=== PATIENT | female | born 1985 | race Caucasian/White ===

== ENCOUNTER 2023-09-23 02:10 | Inpatient (IN) | payer OTHER ==
[2023-09-23] MEDS ORDERED: Ondansetron 4 MG/2 ML SDV IVPUSH PRN (08:00)
[2023-09-23] MEDS ORDERED: Sodium Chloride 0.9% 10 ML Syringe FLUSH PRN (08:00)
[2023-09-23] MEDS ORDERED: Oxytocin/Lactated Ringers 30 UNIT/500 ML BAG IV SCH (08:00)
[2023-09-23] MEDS ORDERED: Lidocaine 1% 50 ML MDV INJECT PRN (08:00)
[2023-09-23] MEDS ORDERED: Nalbuphine 10 MG/ML Syringe IVPUSH PRN (08:00)
[2023-09-23 08:33] LABS: BASOPHILS PERCENT AUTO 0.4 % (0.0-1.0); EOSINOPHILS ABSOLUTE AUTO 0.2 K/mm3 (0.0-0.4); EOSINOPHILS PERCENT AUTO 2.6 % (0.0-6.0); HEMATOCRIT 29.9 % (37.0-47.0); IMMATURE GRAN ABSOLUTE AUTO 0.07 K/mm3 (0.00-0.05); IMMATURE GRAN PERCENT AUTO 0.9 % (0.0-0.4); LYMPHOCYTES ABSOLUTE AUTO 1.6 K/mm3 (1.0-4.8); LYMPHOCYTES PERCENT AUTO 19.2 % (24.0-44.0); MEAN CORPUSCULAR HEMOGLOBIN 26.6 pg (28.0-32.0); MEAN CORPUSCULAR HGB CONC 31.8 g/dl (32.0-36.0); MEAN PLATELET VOLUME 9.4 fl (9.4-12.3); MONOCYTES ABSOLUTE AUTO 0.5 K/mm3 (0.0-0.8); MONOCYTES PERCENT AUTO 6.7 % (0.0-8.0); NEUTROPHILS ABSOLUTE AUTO 5.7 K/mm3 (1.8-7.7); NEUTROPHILS PERCENT AUTO 70.2 % (41.0-71.0); PLATELET COUNT,PLT 259 K/mm3 (150-400); RED BLOOD CELL COUNT 3.57 M/mm3 (4.10-5.30); WHITE BLOOD CELL COUNT,WBC 8.07 K/mm3 (3.9-11.3)
[2023-09-23 08:49] LABS: HEMOGLOBIN 9.5 gm/dl (12.0-16.0); MEAN CORPUSCULAR VOLUME 83.8 fl (83.0-99.0)
[2023-09-23] MEDS: Lactated Ringers 1,000 ML IV SCH (08:54)
[2023-09-23] MEDS: Oxytocin/Lactated Ringers 30 UNIT/500 ML BAG IV SCH (08:54)
[2023-09-23 08:55] LABS: A/G RATIO 0.7 (1-2); ALANINE AMINOTRANSFERASE,ALT 13 U/L (14-59); ALBUMIN 2.3 g/dl (3.4-5.0); ALKALINE PHOSPHATASE 126 U/L (46-116); ANION GAP 13.5 (5-15); ASPARTATE AMNIOTRANSFERASE,AST 17 U/L (15-37); BILIRUBIN TOTAL 0.2 mg/dL (0.2-1.0); BLOOD UREA NITROGEN,BUN 7 mg/dL (7-18); CALCIUM 8.3 mg/dL (8.5-10.1); CARBON DIOXIDE,CO2 22 mEq/L (21-32); CHLORIDE,CL 106 mEq/L (98-107); CREATININE 0.5 mg/dL (0.55-1.02); ESTIMATED GFR 122 mL/min (>60); GLUCOSE RANDOM 89 mg/dL (70-99); POTASSIUM,K 3.5 mEq/L (3.5-5.1); PROTEIN TOTAL,TP 5.6 g/dl (6.4-8.2); SODIUM,NA 138 mEq/L (136-145)
[2023-09-23] MEDS: Sodium Chloride 0.9% 10 ML Syringe FLUSH SCH (11:13)
[2023-09-23 12:01] LABS: CREATININE,URINE RAND 23.4 mg/dL (30.0-125.0); PROTEIN,URINE RANDOM < 6.0 mg/dL (0.0-11.8)
[2023-09-23] MEDS ORDERED: diphenhydrAMINE 50 MG/ML SDV IVPUSH PRN (13:41)
[2023-09-23] MEDS ORDERED: ePHEDrine 50 MG/ML SDV IVPUSH PRN (13:41)
[2023-09-23] MEDS: fentaNYL 100 MCG/2 ML SDV EPIDUR PRN (13:52)
[2023-09-23] MEDS: Bupivacaine/fentaNYL/NS 100 ML Bag EPIDUR PRN (13:52)
[2023-09-24] MEDS: diphenhydrAMINE 50 MG/ML SDV IVPUSH ONE (00:18)
[2023-09-24] MEDS ORDERED: GENTAMICIN IV ONE (01:22)
[2023-09-24] MEDS ORDERED: Sodium Chloride 0.9% 10 ML Syringe FLUSH PRN ×2 (01:22→02:58)
[2023-09-24] MEDS ORDERED: SODIUM CHLORIDE 0.9% IV ONE (01:22)
[2023-09-24] MEDS ORDERED: Lactated Ringers 1,000 ML IV SCH (01:30)
[2023-09-24] MEDS: Clindamycin Phosphate in D5W 900 MG in Premix Bag 1 BAG IV ONE (01:37)
[2023-09-24] MEDS: Metoclopramide 10 MG/2 ML SDV IVPUSH ONE (01:38)
[2023-09-24] MEDS: Citric Acid/Sodium Citrate Solution 30 ML Cup PO ONE (01:38)
[2023-09-24] MEDS: Azithromycin 500 MG in Sodium Chloride 0.9% 250 ML IV ONE (01:44)
[2023-09-24] MEDS ORDERED: Ondansetron 4 MG/2 ML SDV ONE (01:49)
[2023-09-24] MEDS ORDERED: Phenylephrine 1% 10 MG/ML SDV ONE (01:52)
[2023-09-24] MEDS ORDERED: Sodium Chloride 0.9% 100 ML ONE (01:52)
[2023-09-24] MEDS ORDERED: diphenhydrAMINE 50 MG/ML SDV IVPUSH PRN ×2 (02:06→02:58)
[2023-09-24] MEDS ORDERED: fentaNYL 100 MCG/2 ML SDV IVPUSH PRN (02:06)
[2023-09-24] MEDS ORDERED: Meperidine 50 MG/ML Vial IVPUSH PRN (02:06)
[2023-09-24] MEDS ORDERED: Ondansetron 4 MG/2 ML SDV IVPUSH PRN (02:06)
[2023-09-24] MEDS: Bupivacaine 0.5% 30 ML SDV ONE (02:06)
[2023-09-24] MEDS ORDERED: Naloxone 0.4 MG/ML SDV IVPUSH PRN (02:58)
[2023-09-24] MEDS ORDERED: ePHEDrine 50 MG/ML SDV IVPUSH PRN (02:58)
[2023-09-24] MEDS: Acetaminophen 325 MG Tab PO SCH ×2 (03:49→22:47)
[2023-09-24] MEDS: Ibuprofen 600 MG Tab PO SCH ×2 (03:51→22:44)
[2023-09-24] MEDS: Docusate Sodium 100 MG Cap PO SCH (03:52)
[2023-09-24] MEDS: oxyCODONE 5 MG Tab PO PRN (04:53)
[2023-09-24] MEDS: Ferrous Sulfate 324 MG Tab.EC PO SCH (07:32)
[2023-09-24] MEDS: buPROPion 150 MG Tab.ER PO SCH (08:47)
[2023-09-24] MEDS ORDERED: Sodium Chloride 0.9% 10 ML Syringe FLUSH SCH (09:00)
[2023-09-24] MEDS: metFORMIN 500 MG Tab PO SCH (16:50)
[2023-09-25] MEDS: Morphine 2 MG/ML SYRINGE IVPUSH PRN (00:44)
[2023-09-25] MEDS: Simethicone 80 MG Tab.Chew PO PRN (01:01)
[2023-09-25 02:49] LABS: BASOPHILS ABSOLUTE AUTO 0.1 K/mm3 (0.0-0.2); BASOPHILS PERCENT AUTO 0.3 % (0.0-1.0); EOSINOPHILS ABSOLUTE AUTO 0.2 K/mm3 (0.0-0.4); EOSINOPHILS PERCENT AUTO 1.3 % (0.0-6.0); HEMATOCRIT 29.5 % (37.0-47.0); HEMOGLOBIN 9.1 gm/dl (12.0-16.0); IMMATURE GRAN ABSOLUTE AUTO 0.13 K/mm3 (0.00-0.05); IMMATURE GRAN PERCENT AUTO 0.7 % (0.0-0.4); LYMPHOCYTES ABSOLUTE AUTO 2.3 K/mm3 (1.0-4.8); LYMPHOCYTES PERCENT AUTO 12.9 % (24.0-44.0); MEAN CORPUSCULAR HEMOGLOBIN 26.1 pg (28.0-32.0); MEAN CORPUSCULAR HGB CONC 30.8 g/dl (32.0-36.0); MEAN CORPUSCULAR VOLUME 84.8 fl (83.0-99.0); MEAN PLATELET VOLUME 9.8 fl (9.4-12.3); MONOCYTES ABSOLUTE AUTO 0.8 K/mm3 (0.0-0.8); MONOCYTES PERCENT AUTO 4.6 % (0.0-8.0); NEUTROPHILS ABSOLUTE AUTO 14.4 K/mm3 (1.8-7.7); NEUTROPHILS PERCENT AUTO 80.2 % (41.0-71.0); PLATELET COUNT,PLT 278 K/mm3 (150-400); RED BLOOD CELL COUNT 3.48 M/mm3 (4.10-5.30); WHITE BLOOD CELL COUNT,WBC 17.94 K/mm3 (3.9-11.3)
[2023-09-25] MEDS ORDERED: oxyCODONE 5 MG Tab PO PRN (13:01)
[2023-09-25] MEDS ORDERED: Docusate Sodium 100 MG Cap PO PRN (13:13)
[2023-09-25] MEDS: oxyCODONE 5 MG Tab PO ONE (13:45)
== END 2023-09-25 14:20 | disposition home or self-care (01) | DRG 788 ==
LOC: JD.OB 02:10 → OBSVTOIN 09-24 02:10 → JD.OB 09-24 02:11
PROVIDERS: ADMIT Obstetrics & Gynecology; ATTEND Obstetrics & Gynecology
PROC: 3E0R3BZ Introduction of Anesthetic Agent into Spinal Canal, Percutaneous Approach (ICD-10-PCS; 2023-09-24)
PROC: 00HU33Z Insertion of Infusion Device into Spinal Canal, Percutaneous Approach (ICD-10-PCS; 2023-09-24)
PROC: 3E033VJ Introduction of Other Hormone into Peripheral Vein, Percutaneous Approach (ICD-10-PCS; 2023-09-24)
PROC: 3E0334Z Introduction of Serum, Toxoid and Vaccine into Peripheral Vein, Percutaneous Approach (ICD-10-PCS; 2023-09-24)
PROC: 10D00Z1 Extraction of Products of Conception, Low, Open Approach (ICD-10-PCS; principal; 2023-09-24 01:38)
DX: O24.92 Unspecified diabetes mellitus in childbirth (principal); O99.214 Obesity complicating childbirth; O99.344 Other mental disorders complicating childbirth; E66.09 Other obesity due to excess calories; O26.893 Other specified pregnancy related conditions, third trimester; F41.9 Anxiety disorder, unspecified; O69.81X0 Labor and delivery complicated by cord around neck, without compression, not applicable or unspecified; Z3A.39 39 weeks gestation of pregnancy; Z37.0 Single live birth; Z88.0 Allergy status to penicillin; Z67.11 Type A blood, Rh negative; Z87.891 Personal history of nicotine dependence
CPT/HCPCS: 36415; 51702; 59025; 80053; 82570; 82947; 84156; 85025; 85461; 86592; 86850; 86900; 86901; A9270-GY; J0456; J0665; J0736; J1200; J2270; J2371; J2405; J2765; J2790; J3010; J3490; J7050; J7120; J7999

== ENCOUNTER 2023-12-28 15:32 | Day surgery (SDC) | payer OTHER ==
[2023-12-28] MEDS ORDERED: Propofol 200 MG/20 ML SDV ONE (15:52)
[2023-12-28] MEDS ORDERED: dexmedeTOMIDine HCl 200 MCG/2 ML SDV ONE (15:53)
[2023-12-28] MEDS ORDERED: ceFAZolin 2 GM Vial ONE (15:53)
[2023-12-28] MEDS ORDERED: Rocuronium 50 MG/5 ML Vial ONE (15:53)
[2023-12-28] MEDS ORDERED: Dexamethasone 4 MG/ML 5 ML MDV ONE (15:53)
[2023-12-28] MEDS ORDERED: Midazolam 1 MG/ML 2 ML SDV ONE (15:53)
[2023-12-28] MEDS ORDERED: Sugammadex Sodium 200 MG/2 ML VIAL IV ONE ×2 (15:53→17:00)
[2023-12-28] MEDS ORDERED: Lidocaine 1% 5 ML VIAL ONE (15:53)
[2023-12-28] MEDS ORDERED: fentaNYL 250 MCG/5 ML SDV ONE (15:53)
[2023-12-28] MEDS ORDERED: Phenylephrine 1% 10 MG/ML SDV ONE (16:31)
[2023-12-28] MEDS ORDERED: Levofloxacin/Dextrose 5%-Water 750 MG in Premix Bag 1 BAG IV ONE (16:52)
[2023-12-28] MEDS ORDERED: Acetaminophen 325 MG Tab PO PRN (16:54)
[2023-12-28] MEDS ORDERED: Ibuprofen 600 MG Tab PO PRN (16:54)
[2023-12-28] MEDS ORDERED: HYDROmorphone 0.5 MG/0.5 ML Syringe IVPUSH PRN (16:56)
[2023-12-28] MEDS ORDERED: Lactated Ringers 1,000 ML IV SCH ×2 (17:00→17:15)
[2023-12-28] MEDS ORDERED: metroNIDAZOLE/Normal Saline 500 MG in Premix Bag 1 BAG IV SCH (17:00)
[2023-12-28] MEDS ORDERED: Piperacillin/Tazobactam 4.5 GM in Sodium Chloride 0.9% 100 ML IV SCH (17:00)
[2023-12-28] MEDS ORDERED: Ketorolac 30 MG/ML SDV ONE (17:03)
[2023-12-28] MEDS ORDERED: Ondansetron 4 MG/2 ML SDV ONE (17:03)
[2023-12-28] MEDS ORDERED: Lidocaine 1% 30 ML SDV ONE (17:09)
[2023-12-28] MEDS ORDERED: Sodium Chloride 0.9% 10 ML Syringe FLUSH PRN (17:13)
[2023-12-28] MEDS ORDERED: Ondansetron 4 MG/2 ML SDV IVPUSH PRN (17:13)
[2023-12-28] MEDS: fentaNYL 100 MCG/2 ML SDV IVPUSH PRN (18:34)
[2023-12-28] MEDS: HYDROmorphone 0.5 MG/0.5 ML Syringe IVPUSH PRN (18:47)
[2023-12-28] MEDS: traMADol 50 MG Tab PO ONE (19:40)
[2023-12-28] MEDS ORDERED: Sodium Chloride 0.9% 10 ML Syringe FLUSH SCH (21:00)
== END 2023-12-28 20:15 | disposition home or self-care (01) ==
LOC: JD.ED 15:32 → JD.SDS 16:52
PROVIDERS: ATTEND Student in an Organized Health Care Education/Training Program
DX: K35.33 Acute appendicitis with perforation, localized peritonitis, and gangrene, with abscess (principal); F41.9 Anxiety disorder, unspecified; F32.A Depression, unspecified; E11.9 Type 2 diabetes mellitus without complications; E66.9 Obesity, unspecified; Z88.0 Allergy status to penicillin; Z88.8 Allergy status to other drugs, medicaments and biological substances; Z79.84 Long term (current) use of oral hypoglycemic drugs; Z79.899 Other long term (current) drug therapy; Z68.30 Body mass index [BMI] 30.0-30.9, adult
CPT/HCPCS: 44970; A9270; J0690; J1100; J1170; J1836; J1885; J1956; J2250; J2371; J2405; J2704; J3010; J3490; J7120; 00840; 99140